=== PATIENT | female | born 1930 | race Caucasian/White ===

== ENCOUNTER 2016-12-22 17:11 | Emergency (ER) | payer MEDICARE, OTHER ==
[2016-12-22] MEDS ORDERED: ONDANSETRON 4 MG/2 ML VIAL IVP STA (17:39)
[2016-12-22] MEDS ORDERED: HYDROmorphone 1 MG/ML SYRINGE IVP STA ×2 (17:39→20:11)
[2016-12-22] MEDS ORDERED: HYDROmorphone 1 MG/ML SYRINGE ONE ×2 (17:43→20:03)
[2016-12-22] MEDS ORDERED: ONDANSETRON 4 MG/2 ML VIAL ONE (17:43)
[2016-12-22 18:07] LABS: BASOPHILS % (AUTO) 0.5 %; EOSINOPHILS # (AUTO) 0.1 10^3/uL (0.0-0.7); EOSINOPHILS % (AUTO) 0.9 %; HGB - HEMOGLOBIN 12.1 g/dL (12.0-16.0); LYMPHOCYTES # (AUTO) 1.6 10^3/uL (1.5-3.5); LYMPHOCYTES % (AUTO) 19.3 %; MEAN CORPUSCULAR HEMOGLOBIN 29.6 pg (27.0-31.0); MEAN CORPUSCULAR HGB CONC 32.8 g/dL (32.0-36.0); MEAN CORPUSCULAR VOLUME 90.1 fL (81.0-99.0); MEAN PLATELET VOLUME 8.8 fL (7.9-10.8); MONOCYTES # (AUTO) 0.7 10^3/uL (0.0-1.0); MONOCYTES % (AUTO) 8.2 %; NEUTROPHILS # (AUTO) 5.8 10^3/uL (1.5-6.6); NEUTROPHILS % (AUTO) 71.1 %; RED BLOOD COUNT 4.11 10^6/uL (4.20-5.40); UNCORRECTED WHITE BLOOD COUNT 8.2 x10^3/uL; WHITE BLOOD COUNT 8.2 x10^3/uL (4.8-10.8)
[2016-12-22 18:10] LABS: ALBUMIN/GLOBULIN RATIO 1.2 (1.0-2.2); BILIRUBIN,TOTAL 0.5 mg/dL (0.2-1.0); CALCIUM 9.2 mg/dL (8.5-10.3); CREATININE 0.8 mg/dL (0.4-1.0); POTASSIUM 3.8 mmol/L (3.5-5.0); TOTAL PROTEIN 7.4 g/dL (6.7-8.2)
--- NOTE | 2016-12-22 18:11 | ED Physician Documentation ---
History of Present Illness - Stated complaint Stated Complaint: FALL LT HIP,LT WRIST PX - Chief complaint Chief Complaint: General - History obtained from History obtained from: Patient, Friend - Additonal information Additional information: Patient is a pleasant 86-year-old female who presents with a complaint of left groin and left wrist pain. She was in her normal state of health when she had a mechanical fall at home. She fell injuring her left wrist and has pain in the left medial upper thigh area near the adductor compartment. She was able to stand up although she had some pain in the groin area. She is right-hand dominant. The left wrist is also injured in the pain in this area is also made worse with movement and better with rest. She denies any preceding illness. She denies any headache, neck pain, chest pain or abdominal pain. She has not had nausea, vomiting, constipation or diarrhea. She does have a previous femoral neck fracture with a screw fixation. Review of systems: For pertinent positive and negatives in the review of systems please see history of present illness. Otherwise all other systems have been reviewed and are negative. Dragon disclaimer: Parts of this medical record were created using voice recognition technology. Because of the inherent limitations of this system occasional same sounding word substitutions do occur and persist despite proofreading. Please read the document for context. Review of Systems Ten Systems: 10 systems reviewed and negative Constitutional: denies: Fever, Chills Eyes: denies: Loss of vision Ears: denies: Loss of hearing Cardiac: denies: Chest pain / pressure, Palpitations Respiratory: denies: Dyspnea, Cough GI: denies: Abdominal Pain, Abdominal Swelling, Nausea, Vomiting, Constipation, Diarrhea : denies: Dysuria PD PAST MEDICAL HISTORY - Past Medical History Cardiovascular: [place] - Past Surgical History Past Surgical History: Yes - Present Medications Home Medications: Ambulatory Orders Medication Instructions Recorded Confirmed Aspirin [Aspirin EC] 81 mg PO DAILY 12/22/16 12/22/16 Levothyroxine [Synthroid] 25 mcg PO DAILY 12/22/16 12/22/16 Lisinopril 5 mg PO DAILY 12/22/16 12/22/16 Ondansetron Odt [Zofran] 4 mg TL Q6H PRN #10 tablet 12/22/16 oxyCODONE/ACET 5/325 [Percocet 5 1 each PO Q4-6H PRN #16 tablet 12/22/16 mg/325 mg] - Allergies Allergies/Adverse Reactions: Allergies Allergy/AdvReac Type Severity Reaction Status Date / Time codeine Allergy Rash Verified 12/22/16 17:15 Penicillins Allergy Rash Verified 12/22/16 17:15 - Social History Does the pt smoke?: No Smoking Status: Never smoker Does the pt drink ETOH?: Yes ETOH Use: Wine PD ED PE NORMAL - General General: Alert and oriented X 3, No acute distress, Well developed/nourished - HEENT HEENT: Atraumatic, PERRL, EOMI, Ears normal, Pharynx benign - Neck Neck: No bony TTP, No JVD, No bruit - Cardiac Cardiac: RRR, No murmur, No gallop, No rub - Respiratory Respiratory: Clear bilaterally - Abdomen Abdomen: Normal bowel sounds, Soft, Non tender, Non distended - Back Back: No CVA TTP, No spinal TTP - Derm Derm: Normal color, Warm and dry, No rash - Extremities Extremities: Other (Soft tissues swelling and tenderness of distal radius. No carpal or metacarpal tenderness is appreciated. Range of motion of the left elbow is normal.) - Neuro Neuro: Alert and oriented X 3 - Free text exam Free text exam: The left hip, theInjured one ranges normally. She points an area over the proximal adductor compartment where her discomfort is. Palpation of the adductor compartment elicits a little bit of pain but I think it is to distal gets the insertion of the muscle or perhaps a ramus fracture of her pubis Results - Vitals Vitals: Vital Signs - 24 hr 12/22/16 12/22/16 12/22/16 17:12 18:34 20:13 Heart Rate 67 75 70 Respiratory 20 18 18 Rate Blood Pressure 175/80 H 154/75 H 179/88 H O2 Saturation 98 94 96 Oxygen O2 Source Room air - Labs Labs: Laboratory Tests 12/22/16 12/22/16 12/22/16 17:40 17:40 18:33 WBC 8.2 RBC 4.11 L Hgb 12.1 Hct 37.0 MCV 90.1 MCH 29.6 MCHC 32.8 RDW 14.0 Plt Count 207 MPV 8.8 Neut # 5.8 Lymph # 1.6 Swisher # 0.7 Eos # 0.1 Baso # 0.0 Absolute Nucleated RBC 0.00 Nucleated RBCs 0.0 Sodium 131 L Potassium 3.8 Chloride 95 L Carbon Dioxide 26 Anion Gap 10.0 BUN 23 H Creatinine 0.8 Estimated GFR (MDRD) 68 L Glucose 111 H Calcium 9.2 Total Bilirubin 0.5 AST 21 ALT 14 Alkaline Phosphatase 74 Total Protein 7.4 Albumin 4.1 Globulin 3.3 Albumin/Globulin Ratio 1.2 Lipase 22 Urine Color YELLOW Urine Clarity CLEAR Urine pH 6.5 Ur Specific [place] 1.010 Urine Protein NEGATIVE Urine Glucose (UA) NEGATIVE Urine Ketones NEGATIVE Urine Occult Blood NEGATIVE Urine Nitrite NEGATIVE Urine Bilirubin NEGATIVE Urine Urobilinogen 0.2 (NORMAL) Ur Leukocyte Esterase NEGATIVE Ur Microscopic Review NOT INDICATED Urine Culture Comments NOT INDICATED PD MEDICAL DECISION MAKING - ED course Complexity details: reviewed old records, reviewed results, re-evaluated patient ED course: Dg is a 86-year-old female had a mechanical fall she can of pain and injury to the left wrist into the groin area.On x-ray she has got a nondisplaced left distal radius fracture. 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 The splint was checked afterward and found to be in good position. Routine labs are performed and all are normal. In regards to her left pelvis area it feels possibly like a groin pull versus ramus fracture of the pelvis. A CT scanWas done and demonstrates a ramus fracture however the radiologist thinks it may be old. The patient was told that this could represent a muscular strain or perhaps a small ramus fracture. She understands that it is not surgically treated however may be painful. She will be issued pain medication for both the wrist which she was told to rest, elevate, and follow- up with orthopedics. She is discharged home at this time in good condition. Disposition to home Clinical impression: 1. Distal radius fracture left arm nondisplaced status post splinting 2. Adductor compartment groin pull versus possible pubic ramus fracture Departure - Departure Disposition: 01 Home, Self Care Clinical Impression: Radius distal fracture Qualifiers: Encounter type: initial encounter Fracture type: closed Fracture morphology: Colles' Laterality: left Qualified Code(s): S52.532A - Colles' fracture of left radius, initial encounter for closed fracture Condition: Good Instructions: ED Strain Groin, ED Fx Forearm Radius Ulna No Redu Requ Follow-Up: Kranthi Flores MD [Provider Admit Priv/Credential] - Prescriptions: oxyCODONE/ACET 5/325 [Percocet 5 mg/325 mg] 1 each PO Q4-6H PRN #16 tablet PRN Reason: Pain Ondansetron Odt [Zofran] 4 mg TL Q6H PRN #10 tablet PRN Reason: Nausea / Vomiting
--- NOTE | 2016-12-22 18:29 | XRAY Preliminary Report ---
Exam: XR Wrist 3 View LT IMPRESSION: Distal radial metaphyseal fracture. [facility] SITE ID: [id number]
--- NOTE | 2016-12-22 18:34 | XRAY Report ---
EXAM: LEFT WRIST RADIOGRAPHY EXAM DATE: 12/22/2016 06:04 PM. CLINICAL HISTORY: Injury-suspect distal radius fracture. COMPARISON: None. TECHNIQUE: 3 views. FINDINGS: Bones: Osteopenia. Acute transverse hairline fracture distal radial metaphysis. Old tiny ununited avulsion fracture ulnar styloid process. Remote distal radial fracture. Joints: Bones in anatomic alignment. Marked degenerative changes radiocarpal joint. Extensive chondro calcinosis. Dystrophic calcifications dorsal and anterior to the proximal carpal row consistent with calcific tendinitis although small avulsion fractures not excluded. Soft Tissues: Moderate edema distal forearm and wrist. IMPRESSION: Distal radial metaphyseal fracture. [facility] Referring Provider Line: [phone] SITE ID: [id number]
[2016-12-22 18:42] LABS: BILIRUBIN,URINE NEGATIVE (NEGATIVE); PH,URINE 6.5 PH (5.0-7.5)
[2016-12-22 18:43] LABS: UA CHARGE (STRIP ONLY) YES; UR CULTURE IF IND NOT INDICATED
--- NOTE | 2016-12-22 18:56 | CT Preliminary Report ---
Exam: CT Pelvis W/O IMPRESSION: 1. Vertical fracture left pubic ramus more likely old than acute. Correlate clinically. 2. Colonic diverticulosis. 3. Small infraumbilical hernia. Suspect tiny amount of fluid or non-entrapped bowel small bowel and s uch without evidence of incarceration. Is this lady focally tender in this region. [facility] SITE ID: [id number]
--- NOTE | 2016-12-22 19:03 | CT Report ---
EXAM: CT BONY PELVIS WITHOUT CONTRAST EXAM DATE: 12/22/2016 06:24 PM. CLINICAL HISTORY: Fall, left groin pain, ramus fracture?. COMPARISON: None. TECHNIQUE: Thin-section axial images were acquired of the pelvis without contrast. Post-processing: C oronal and sagittal reformats. Other: None. In accordance with CT protocol optimization, one or more of the following dose reduction techniques w ere utilized for this exam: automated exposure control, adjustment of mA and/or KV based on patient s ize, or use of iterative reconstructive technique. FINDINGS: Bones: Oblique nondisplaced fracture or distortion medial aspect inferior left pubic ramus without ad jacent edema. Oblique nondisplaced fracture or distortion medial aspect of the left symphysis pubis without adjacen t edema. Remote ORIF left hip. Osteopenia. Sacroiliac Joints: No widening, erosions, or sclerosis. Symphysis Pubis: Unremarkable. Right Hip: The joint space is preserved. No calcified loose bodies. Left Hip: The joint space is preserved. No calcified loose bodies. Musculature: Normal. No fatty atrophy. Pelvic Cavity: Diverticula off the colon. Equivocal 1 x 4 cm infraumbilical ventral hernia, located 3.5 cm inferior to the umbilicus with a 1 c m neck. Loops of small bowel extend subjacent to this hernia and a small knuckle of small bowel may b e extending into the hernia sac without appreciable obstruction. Visualized large and small bowel nor mal caliber. No free air nor free fluid. Other: No lymphadenopathy. No free air or free fluid. The other visualized soft tissues are unremarka ble. IMPRESSION: 1. Vertical fracture left pubic ramus more likely old than acute. Correlate clinically. 2. Colonic diverticulosis. 3. Small infraumbilical ventral hernia. Suspect tiny amount of fluid or non-entrapped small bowel and such without evidence of incarceration. Is this lady focally tender in this region? [facility] Referring Provider Line: [phone] SITE ID: [id number]
[2016-12-22] MEDS ORDERED: KETOROLAC 60 MG/2 ML VIAL IVP STA (19:36)
[2016-12-22] MEDS ORDERED: KETOROLAC 30 MG/ML VIAL ONE (19:38)
[2016-12-22 20:15] VITALS: BP 179/88
[2016-12-22] MEDS ORDERED: oxyCODONE/ACET 5/325 Prepack 4 PO STA (20:44)
[2016-12-22] MEDS ORDERED: oxyCODONE/ACET 5/325 Prepack 4 PO ONE (20:44)
== END 2016-12-22 21:24 | disposition home or self-care (01) ==
LOC: ED 17:11
DX: S52.502A Unspecified fracture of the lower end of left radius, initial encounter for closed fracture (principal); S39.93XA Unspecified injury of pelvis, initial encounter; W17.2XXA Fall into hole, initial encounter; Y92.009 Unspecified place in unspecified non-institutional (private) residence as the place of occurrence of the external cause; I25.2 Old myocardial infarction; Z79.82 Long term (current) use of aspirin
CPT/HCPCS: 29125; 36415; 72192; 73110; 80053; 81003; 83690; 85025; 96374; 96375; 96376; 99284; J1170; 81001; 87086

== ENCOUNTER 2018-10-30 14:04 | Emergency (ER) | payer MEDICARE, OTHER ==
--- NOTE | 2018-10-30 14:23 | ED Physician Documentation ---
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 No: Head, Chest, Abdomen Quality of pain: Pain, Throbbing Associated symptoms: No: LOC, AMS, Weakness, Paresthesias Worsens with: Movement, Palpation Contributing factors: No: Anticoagulated Similar symptoms before: Has not had sx before Review of Systems Constitutional: denies: Fever Nose: denies: Rhinorrhea / runny nose, Congestion Throat: denies: Sore throat Cardiac: denies: Chest pain / pressure Respiratory: denies: Cough GI: denies: Abdominal Pain, Vomiting, Diarrhea Musculoskeletal: denies: Neck pain, Back pain Neurologic: denies: Near syncope, Altered mental status, Head injury, LOC PD PAST MEDICAL HISTORY - Past Medical History Cardiovascular: [place] - Past Surgical History Past Surgical History: Yes - Present Medications Home Medications: Ambulatory Orders Medication Instructions Recorded Confirmed Aspirin [Aspirin EC] 81 mg PO DAILY 12/22/16 12/22/16 Levothyroxine [Synthroid] 25 mcg PO DAILY 12/22/16 12/22/16 Lisinopril 5 mg PO DAILY 12/22/16 12/22/16 traMADol [Ultram] 50 mg PO Q4-6H 10/30/18 10/30/18 - Allergies Allergies/Adverse Reactions: Allergies Allergy/AdvReac Type Severity Reaction Status Date / Time codeine Allergy Rash Verified 12/22/16 17:15 Penicillins Allergy Rash Verified 10/30/18 14:18 - Social History Does the pt smoke?: No Smoking Status: Never smoker Does the pt drink ETOH?: Yes PD ED PE NORMAL - Vitals Vital signs reviewed: Yes - General General: Alert and oriented X 3, Well developed/nourished, Other (appears in some pain due to wrist. ) - Neck Neck: Supple, no meningeal sign, No adenopathy - Cardiac Cardiac: RRR, No murmur - Respiratory Respiratory: Clear bilaterally - Abdomen Abdomen: Soft, Non tender - Derm Derm: Normal color, Warm and dry - Extremities Extremities: Other (The right wrist is the main injury with tenderness and some mild bruising and swelling over the distal radius and proximal hand. Limited range of motion due to pain. There is localized tenderness. She has good sensation color and capillary refill in the fingers. She is able to move her fingers well. There is no pain or tenderness at the elbow.) - Neuro Neuro: Alert and oriented X 3, No motor deficit, No sensory deficit, Normal speech Eye Opening: Spontaneous Verbal: Oriented Results - Vitals Vitals: Vital Signs - 24 hr 10/30/18 10/30/18 14:15 16:45 Temperature 36 C L Heart Rate 69 80 Respiratory 20 14 Rate Blood Pressure 197/63 H 178/97 H O2 Saturation 98 97 Oxygen O2 Source Room air - Rads (name of study) right wrist Radiology: Prelim report reviewed, EMP read contemporaneously (distal radius fracture with minimal dorsal angulation. Small ulnar styolid fracture. ), See rad report left knee Radiology: Prelim report reviewed, EMP read contemporaneously (no fractures), See rad report Procedures - Splint (location) right wrist Splint applied by: Tech Type of splint: Fiberglass, Short leg Other: Patient tolerated well, No complications, Neurovascular intact. No: Sli ng provided (patient declined it) PD MEDICAL DECISION MAKING - ED course Complexity details: re-evaluated patient (She declined narcotic pain meds. She/ state some Tramadol at home from prior injury and will use that if needed. ), considered differential, d/w patient Departure - Departure Disposition: 01 Home, Self Care Clinical Impression: Fall from slip, trip, or stumble Qualifiers: Encounter type: initial encounter Qualified Code(s): W01.0XXA - Fall on same level from slipping, tripping and stumbling without subsequent striking against object, initial encounter Knee contusion Qualifiers: Encounter type: initial encounter Laterality: left Qualified Code(s): S80.02XA - Contusion of left knee, initial encounter Wrist fracture, right Qualifiers: Encounter type: initial encounter Fracture type: closed Qualified Code(s): S62.101A - Fracture of unspecified carpal bone, right wrist, initial encounter for closed fracture Condition: Stable Record reviewed to determine appropriate education?: Yes Instructions: ED Fx Colles Wrist No Redu Requ Follow-Up: [facility] [Provider Group] Comments: Keep the splint in place. Elevate and rest your wrist often to reduce swelling. Call your orthopedist today or tomorrow for an appointment the end of this week or next week for recheck and change from the splint to the cast. This likely will heal in place without surgery. The follow-up is to ensure that and that it holds position. Tylenol if needed for pains. Add tramadol as needed. Discharge Date/Time: 10/30/18 16:58
[2018-10-30] MEDS ORDERED: traMADol 50 MG TABLET PO STA (14:41)
[2018-10-30] MEDS ORDERED: ACETAMINOPHEN 325 MG TABLET PO STA (14:41)
--- NOTE | 2018-10-30 16:12 | XRAY Report ---
Reason: trip and fall forward today Procedure Date: 10/30/2018 Accession Number: [id number] / [id number] Procedure: XR - Wrist 4 View RT CPT Code: FULL RESULT: EXAM: RIGHT WRIST RADIOGRAPHY EXAM DATE: 10/30/2018 02:50 PM. CLINICAL HISTORY: Trip and fall forward today. COMPARISON: None. TECHNIQUE: 4 views. FINDINGS: Bones: Osteopenia. Impacted transverse fracture of distal radial metaphysis with complete apposition and a small amount of comminution. Associated nondisplaced fracture of the ulnar styloid process. Joints: Mild to moderate degenerative changes with prominent chondrocalcinosis, compatible with pseudogout. Soft Tissues: Soft tissue swelling. IMPRESSION: Nondisplaced distal radius fracture with associated ulnar styloid process fracture. [facility]
--- NOTE | 2018-10-30 16:13 | XRAY Report ---
Reason: trip and fall forward today Procedure Date: 10/30/2018 Accession Number: [id number] / [id number] Procedure: XR - Knee 3 View LT CPT Code: FULL RESULT: EXAM: LEFT KNEE RADIOGRAPHY EXAM DATE: 10/30/2018 03:04 PM. CLINICAL HISTORY: Trip and fall forward today. COMPARISON: None. TECHNIQUE: 3 views. FINDINGS: Bones: Osteopenia. No definite fracture or other bone lesion. Joints: Joint spaces generally well preserved. Minimal chondrocalcinosis. No definite effusion. Soft Tissues: Unremarkable. IMPRESSION: No acute disease. [facility]
[2018-10-30 16:46] VITALS: BP 178/97
== END 2018-10-30 16:58 | disposition home or self-care (01) ==
LOC: ED 14:04
DX: S52.501A Unspecified fracture of the lower end of right radius, initial encounter for closed fracture (principal); S52.614A Nondisplaced fracture of right ulna styloid process, initial encounter for closed fracture; S80.02XA Contusion of left knee, initial encounter; W01.0XXA Fall on same level from slipping, tripping and stumbling without subsequent striking against object, initial encounter; Y92.003 Bedroom of unspecified non-institutional (private) residence as the place of occurrence of the external cause; Z79.82 Long term (current) use of aspirin
CPT/HCPCS: 29125; 73110; 73562; 99283; A9270